=== PATIENT | female | born 1975 | race Caucasian/White ===

== ENCOUNTER 2024-08-19 13:23 | Emergency (ER) | payer OTHER ==
[~2024-08-19] VITALS: Ht 167.6 cm; Wt 74.9 kg
--- OUTSIDE RECORDS SUMMARY | 2024-08-19 13:30 | XMS ---
PreManage Notification: [facility] [employer] Security Facility Security Officer Events No recent Security Events currently on file CRITERIA MET - [facility] - 2 Visits in 30 Days CARE PROVIDERS -, [facility] Dentist: Business Continuity Management Director [facility] PHONE: [phone] - [place]- Dentist: Business Continuity Management Director [facility] PHONE: [phone] [place], [facility]/Center: [facility] ([facility]) PHONE: [phone] JAYLA LANDA [facility] Current PHONE: Unknown Parmjit has no Care Guidelines for this patient. Ayesha VISIT COUNT (12 MO.) 4 [facility] ([facility]) 1 [facility] TOTAL 5 NOTE: Visits indicate total known visits. ED/UCC VISIT TRACKING (12 MO.) 08/19/2024 13:25 [facility] [place] TYPE: Emergency COMPLAINT: - SKIN PROBLEM 08/06/2024 01:52 [facility] [place] ([facility]achariah Soni) TYPE: Emergency DIAGNOSES: - Hyperglycemia, unspecified - Hypomagnesemia - Sepsis, unspecified organism - Urinary tract infection, site not specified - Chills - Generalized Body Aches - High Blood Sugar (Symptomatic) 12/18/2023 17:43 [facility] [place] ([facility]ariah Soni) TYPE: Emergency DIAGNOSES: - Type 1 diabetes mellitus with ketoacidosis with coma - High Blood Sugar (Symptomatic) 12/17/2023 15:37 [facility] [place] (Zachariah Soni) TYPE: Emergency DIAGNOSES: - Type 1 diabetes mellitus with ketoacidosis without coma 12/17/2023 15:37 [facility] [place] ([place]) TYPE: Emergency DIAGNOSES: - Type 1 diabetes mellitus with ketoacidosis without coma - diabetes - Diarrhea (Adult) - Emesis - Fatigue - Nausea INPATIENT VISIT TRACKING (12 MO.) 08/06/2024 01:52 [facility] [place] ([place]) TYPE: Medical Surgical DIAGNOSES: - Acute kidney failure, unspecified - Acute pyelonephritis - Alcohol dependence, uncomplicated - Delusional disorders - Essential (primary) hypertension - Hyperglycemia, unspecified - Hypomagnesemia - Nicotine dependence, unspecified, uncomplicated - Other specified health status - Other toxic encephalopathy - Sepsis, unspecified organism - Severe sepsis without septic shock - Type 1 diabetes mellitus with hyperglycemia - Unspecified psychosis not due to a substance or known physiological condition - Urinary tract infection, site not specified 12/18/2023 17:43 [facility] ([place]) TYPE: Medical Surgical DIAGNOSES: - Chronic kidney disease, stage 3a - Pneumonitis due to inhalation of food and vomit - Type 1 diabetes mellitus with ketoacidosis with coma 12/17/2023 15:37 [facility] [place] ([facility]ariah Soni) TYPE: Emergency DIAGNOSES: - Type 1 diabetes mellitus with ketoacidosis without coma [email or web address]
[2024-08-19] MEDS ORDERED: OMEPRAZOLE20 MG PO (13:46)
[2024-08-19] MEDS ORDERED: ATENOLOL100 MG PO (13:46)
[2024-08-19] MEDS ORDERED: LOSARTAN POTASS25 MG PO (13:47)
[2024-08-19] MEDS ORDERED: CLARITIN10 M2 PO (13:47)
[2024-08-19] MEDS ORDERED: LIPITOR40 MG PO (13:47)
[2024-08-19] MEDS ORDERED: MAGNESIUM100 MG PO (13:48)
[2024-08-19] MEDS ORDERED: SODIUM BICARBO325 MG PO (13:48)
[2024-08-19] MEDS ORDERED: LEXAPRO20 MG PO (13:49)
[2024-08-19] MEDS ORDERED: GABAPENTIN100 MG PO (13:49)
[2024-08-19] MEDS ORDERED: INSULIN GL300 UNIT/1 (13:50)
[2024-08-19] MEDS ORDERED: HUMALOG100 UNITS/ SUB-Q (13:51)
[2024-08-19 14:10] LABS: BILIRUBIN, URINE NEGATIVE (negative); BLOOD/HGB, URINE NEGATIVE (Negative); KETONE, URINE NEGATIVE (Negative); LEUK ESTERASE, URINE NEGATIVE (negative); NITRITE, URINE NEGATIVE (negative)
[2024-08-19 14:22] LABS: BASOPHILS 1.9 % (0-2); HEMATOCRIT 33.7 % (35.0-50.0); HEMOGLOBIN 11.3 g/dL (12.0-18.0); MCH 31.9 (27-36); MCHC 33.4 g/dl (30-36); MCV 95.4 fl (81-99); MONOCYTES 7.7 % (0-12); NEUTROPHILS 51.4 % (39-80); PLATELET COUNT 690 K/uL (140-440); RBC 3.53 M/ul (4.3-5.7); RDW 13.1 (10.5-15.0)
[2024-08-19 14:24] LABS: AMPHETAMINES, URINE POSITIVE (NEGATIVE); BARBITURATES, URINE NEGATIVE (NEGATIVE); BENZODIAZEPINE, URINE NEGATIVE (NEGATIVE); BUPRENORPHINE, URINE NEGATIVE (NEGATIVE); CANNABINOID, URINE NEGATIVE (NEGATIVE); COCAINE, URINE NEGATIVE (NEGATIVE); ECSTASY, URINE NEGATIVE (NEGATIVE); FENTANYL, URINE NEGATIVE (NEGATIVE); METHADONE, URINE NEGATIVE (NEGATIVE); OPIATES, URINE NEGATIVE (NEGATIVE); OXYCODONE, URINE NEGATIVE (NEGATIVE); PHENCYCLIDINE, URINE NEGATIVE (NEGATIVE)
[2024-08-19 14:33] LABS: ALBUMIN 2.6 g/dL (3.4-5.0); ALBUMIN/GLOBULIN RATIO 0.72 (1.1-2.4); ANION GAP 10.4 (7-21); BILIRUBIN, TOTAL 0.2 ng/dL (0.2-1.0); BUN/CREATININE RATIO 14.96 (6.0-28.6); CREATININE, SERUM 1.27 mg/dL (0.55-1.02); POTASSIUM 4.4 mmol/L (3.5-5.1); PROTEIN, TOTAL 6.2 g/dL (6.4-8.2)
[2024-08-19] MEDS ORDERED: ELIMITE60 GM TOP (15:30)
[2024-08-19 15:48] VITALS: BP 142/89
== END 2024-08-19 15:48 | disposition home or self-care (01) ==
LOC: ED
PROVIDERS: Emergency Medicine
DX: B86 Scabies (principal); Z88.2 Allergy status to sulfonamides; Z79.899 Other long term (current) drug therapy; Z79.4 Long term (current) use of insulin
CPT/HCPCS: 36415; 80053; 80307; 81003; 85025; 99282